=== PATIENT | female | born 1955 | race Caucasian/White ===

== ENCOUNTER 2022-11-01 13:27 | Emergency (ER) | payer OTHER, SELFPAY ==
[2022-11-01 13:38] VITALS: BP 170/75; PULSE 80; RESP 18; TEMP 36.7; O2SAT 99; BMI 20.7
--- NOTE | 2022-11-01 13:43 | DI.RAD.S_ITS ---
PROCEDURE: XR CHEST 1V INDICATIONS: chest pain TECHNIQUE: One view of the chest was acquired. COMPARISON: None. FINDINGS: Surgical changes and devices: An electronic device projecting to the left upper thorax. Lungs and pleura: Lungs are clear. No pleural effusions or pneumothorax. Mediastinum: Mediastinal contours appear normal. Heart size is normal. Bones and chest wall: No suspicious bony lesions. Overlying soft tissues appear unremarkable. IMPRESSION: No acute cardiopulmonary disease. Dictated by: Esa Amos M.D. on 11/01/2022 at 14:05 Approved by: Esa Amos M.D. on 11/01/2022 at 14:06
--- NOTE | 2022-11-01 13:59 | ED.CHESTPAIN ---
HPI - Chest Pain <JULIAN Chowdary - Last Filed: 11/01/22 16:24> General Chief Complaint: Chest Pain Stated Complaint: Chest pain Time Seen by Provider: 11/01/22 13:46 Source: patient Mode of arrival: Ambulatory Limitations: no limitations History of Present Illness HPI narrative: This is a 66-year-old female with history of type 1 diabetes, hypothyroidism, states that she takes supplemental thyroid, antihypertensive and hyperlipidemia medications as well as her insulin for her type 1 diabetes. Presents to the emergency department complaining of sharp left-sided chest pain started at 12:30. Patient states that when the pain started she was reaching with her left hand up to a shelf to grab something off, states it radiated to her back, she also felt dizziness and it lasted approximately 2 minutes. She states that since this event she is had recurrence of sharp left-sided chest pain only for up to 1 minute at a time and states this has happened at least a dozen times since 12:30. Denies other symptoms including nausea, vomiting, diaphoresis, fever, chills, lightheadedness, fall, palpitations. Denies recent change to her health other than episodes of what she thinks are palpitations. States that yesterday she was walking a dog and had the dog on a leash which pulled her in your left arm and she thought maybe was muscle tension but it is not reproducible, there is no pain with deep inspiration. The last episode of pain she states was approximately 15 minutes prior to my exam at 1350. She is seen at [facility], her PCP is Ishan Torres, she was recently at [facility] for Zio XT patch. Related Data Allergies Allergy/AdvReac Type Severity Reaction Status Date / Time codeine Allergy Verified 11/01/22 13:38 Review of Systems <JULIAN Chowdary - Last Filed: 11/01/22 16:24> Review of Systems ROS Unobtainable: All systems reviewed & are unremarkable except as noted in HPI and below Patient History <JULIAN Chowdary - Last Filed: 11/01/22 16:24> Social History Smoking Status: Never smoker Smoking Status: Never smoker Substance Use Type: marijuana Exam <JULIAN Chowdary - Last Filed: 11/01/22 16:24> Narrative Exam Narrative: Reviewed vitals signs and nursing notes. General: cooperative, comfortable, in no acute distress, well groomed, without diaphoresis HEENT: symmetrical facial expressions, moist mucous membranes Cardiovascular: regular rate and rhythm, S1-S2 without murmur, gallop, radial pulses 2+ bilaterally, without pallor or peripheral edema, she has warm extremities Respiratory: normal effort, able to speak in complete sentences, without wheezing, stridor, or abnormal breath sounds. No retractions or tachypnea. GI: abdomen soft, nontender to palpation, nondistended, without masses, rebound tenderness or exquisite tenderness with exam. MSK: moves all extremities, neurovascularly intact, no weakness, normal tone Skin: brisk capillary refill, without pallor or erythema Neuro: normal speech and cognition, A&O x3, ambulatory, clear speech Psych: mental status is grossly normal, congruent mood, normal affect, pleasant and cooperative Initial Vital Signs Initial Vital Signs: Vital Signs Temperature 98.1 F 11/01/22 13:38 Pulse Rate 80 11/01/22 13:38 Respiratory Rate 18 11/01/22 13:38 Blood Pressure 170/75 H 11/01/22 13:38 Pulse Oximetry 99 11/01/22 13:38 Oxygen Delivery Method 11/01/22 13:38 <Brian Diggs DO - Last Filed: 11/03/22 11:11> Initial Vital Signs Initial Vital Signs: Vital Signs Temperature 98.1 F 11/01/22 13:38 Pulse Rate 80 11/01/22 13:38 Respiratory Rate 18 11/01/22 13:38 Blood Pressure 170/75 H 11/01/22 13:38 Pulse Oximetry 99 11/01/22 13:38 Oxygen Delivery Method 11/01/22 13:38 Scores <JULIAN Chowdary - Last Filed: 11/01/22 16:24> HEART Score Heart Score history: Slightly Suspicious Heart Score EKG: Normal Heart Score Age: 45-64 years old Heart Score risk factors: > 3 risk factors or hx of atherosclerotic disease Heart Score troponin: < or = to normal limit Heart Score Total: 3 PERC Score Age greater than or equal to 50 years: Yes Heart rate greater than or equal to 100 bpm: No Room Air O2 Sat less than 95%: No Unilateral leg swelling: No Recent trauma or surgery: No Hemoptysis: No Prior PE or DVT: No Hormone Use: No Total PERC Score: 1 Wells' Criteria for PE Clinical signs and symptoms of DVT: No PE is #1 Dx or equally likely: No Heart rate > 100: No Immobilization at least 3 days or surg in previous 4 weeks: No History of PE or DVT: No Hemoptysis: No Malignancy w/Treatment within 6 months or palliative: No Wells' PE Score total: 0 <Brian Diggs DO - Last Filed: 11/03/22 11:11> HEART Score Heart Score Total: 3 PERC Score Total PERC Score: 1 Wells' Criteria for PE Wells' PE Score total: 0 Course <JULIAN Chowdary - Last Filed: 11/01/22 16:24> Orders Ordered: Discontinued Medications Aspirin (Aspirin 81 Mg Chew Tab) 324 mg PO NOW ONE Stop: 11/01/22 13:44 Last Admin: 11/01/22 14:27 Dose: 324 mg Documented By: PADDY Vital Signs Vital signs: Vital Signs - 8 hr 11/01/22 13:38 11/01/22 14:25 11/01/22 15:07 Temperature 98.1 F Pulse Rate 80 66 65 Respiratory Rate 18 17 18 Blood Pressure 170/75 H 137/63 117/60 Pulse Oximetry 99 99 98 Oxygen Delivery Method Room Air Room Air <Brian Diggs DO - Last Filed: 11/03/22 11:11> Orders Ordered: Discontinued Medications Aspirin (Aspirin 81 Mg Chew Tab) 324 mg PO NOW ONE Stop: 11/01/22 13:44 Last Admin: 11/01/22 14:27 Dose: 324 mg Documented By: PADDY Vital Signs Vital signs: Vital Signs - 8 hr 11/01/22 13:38 11/01/22 14:25 11/01/22 15:07 Temperature 98.1 F Pulse Rate 80 66 65 Respiratory Rate 18 17 18 Blood Pressure 170/75 H 137/63 117/60 Pulse Oximetry 99 99 98 Oxygen Delivery Method Room Air Room Air MDM - Chest Pain <JULIAN Chowdary - Last Filed: 11/01/22 16:24> Lab Data Result diagrams: 11/01/22 14:00 11/01/22 14:00 Labs: Lab Results 11/01/22 11/01/22 11/01/22 Range/Units 14:00 14:00 14:00 WBC 5.1 (4.5-11.0) X10^3/uL RBC 3.81 L (4.0-5.2) X10^6/uL Hgb 11.5 L (12.0-16.0) g/dL Hct 34.6 L (36-46) % MCV 90.9 (80-100) fL MCH 30.2 (26-34) PG MCHC 33.2 (30-36) % RDW 12.5 (11.6-14.8) % Plt Count 346 (150-400) X10^3/uL Neut % (Auto) 65.3 (50-75) % Lymph % (Auto) 20.6 L (25-40) % [place] % (Auto) 8.7 (3-14) % Eos % (Auto) 4.6 H (2-4) % Baso % (Auto) 0.8 (0-2) % Neut # (Auto) 3400 (4728-5656) /uL Lymph # (Auto) 1100 (2546-9885) /uL [place] # (Auto) 400 (0-900) /uL Eos # (Auto) 200 (0-450) /uL Baso # (Auto) 0 (0-100) /uL PT 10.9 (10.1-12.7) SECONDS INR 1.0 (0.9-1.3) APTT 29 (26-36) SECONDS D-Dimer (<500) ng/ml Sodium 138 (137-145) mmol/L Potassium 3.6 (3.4-5.1) mmol/L Chloride 105 (98-107) mmol/L Carbon Dioxide 28 (22-32) mmol/L BUN 15 (7-17) mg/dL Creatinine 0.64 (0.52-1.04) mg/dL Estimated GFR > 60 (>60) mL/min BUN/Creatinine Ratio 23.4 H (6-22) Glucose 160 H (80-110) mg/dL Calcium 9.5 (8.4-10.2) mg/dL Magnesium 2.1 (1.6-2.3) mg/dL Total Bilirubin 0.2 (0.2-1.3) mg/dL AST 23 (14-36) IU/L ALT 19 (<35) IU/L Alkaline Phosphatase 58 (38-126) U/L Total Creatine Kinase 46 (30-135) U/L CK-MB (CK-2) TNP CK-MB (CK-2) Rel Index TNP Troponin I < 0.012 (0.01-0.034) ng/mL NT-Pro-B Natriuret Pep (<125) pg/mL Total Protein 6.7 (6.3-8.2) g/dL Albumin 3.9 (3.5-5.0) g/dL Globulin 2.8 (1.7-4.1) g/dL Albumin/Globulin Ratio 1.4 (1.0-2.8) Lipase 115 (23-300) U/L TSH (0.47-4.68) uIU/mL Free T4 (0.78-2.19) ng/dL SARS-CoV-2 (PCR) (Negative) Influenza A (RT-PCR) (NEGATIVE) Influenza B (RT-PCR) (NEGATIVE) RSV (PCR) (Negative) 11/01/22 11/01/22 11/01/22 Range/Units 14:00 14:00 14:00 WBC (4.5-11.0) X10^3/uL RBC (4.0-5.2) X10^6/uL Hgb (12.0-16.0) g/dL Hct (36-46) % MCV (80-100) fL MCH (26-34) PG MCHC (30-36) % RDW (11.6-14.8) % Plt Count (150-400) X10^3/uL Neut % (Auto) (50-75) % Lymph % (Auto) (25-40) % [place] % (Auto) (3-14) % Eos % (Auto) (2-4) % Baso % (Auto) (0-2) % Neut # (Auto) (9985-0810) /uL Lymph # (Auto) (9348-5811) /uL [place] # (Auto) (0-900) /uL Eos # (Auto) (0-450) /uL Baso # (Auto) (0-100) /uL PT (10.1-12.7) SECONDS INR (0.9-1.3) APTT (26-36) SECONDS D-Dimer 591 H (<500) ng/ml Sodium (137-145) mmol/L Potassium (3.4-5.1) mmol/L Chloride (98-107) mmol/L Carbon Dioxide (22-32) mmol/L BUN (7-17) mg/dL Creatinine (0.52-1.04) mg/dL Estimated GFR (>60) mL/min BUN/Creatinine Ratio (6-22) Glucose (80-110) mg/dL Calcium (8.4-10.2) mg/dL Magnesium (1.6-2.3) mg/dL Total Bilirubin (0.2-1.3) mg/dL AST (14-36) IU/L ALT (<35) IU/L Alkaline Phosphatase (38-126) U/L Total Creatine Kinase (30-135) U/L CK-MB (CK-2) CK-MB (CK-2) Rel Index Troponin I (0.01-0.034) ng/mL NT-Pro-B Natriuret Pep 43 (<125) pg/mL Total Protein (6.3-8.2) g/dL Albumin (3.5-5.0) g/dL Globulin (1.7-4.1) g/dL Albumin/Globulin Ratio (1.0-2.8) Lipase (23-300) U/L TSH 4.88 H (0.47-4.68) uIU/mL Free T4 0.95 (0.78-2.19) ng/dL SARS-CoV-2 (PCR) (Negative) Influenza A (RT-PCR) (NEGATIVE) Influenza B (RT-PCR) (NEGATIVE) RSV (PCR) (Negative) 11/01/22 11/01/22 Range/Units 14:35 15:41 WBC (4.5-11.0) X10^3/uL RBC (4.0-5.2) X10^6/uL Hgb (12.0-16.0) g/dL Hct (36-46) % MCV (80-100) fL MCH (26-34) PG MCHC (30-36) % RDW (11.6-14.8) % Plt Count (150-400) X10^3/uL Neut % (Auto) (50-75) % Lymph % (Auto) (25-40) % [place] % (Auto) (3-14) % Eos % (Auto) (2-4) % Baso % (Auto) (0-2) % Neut # (Auto) (0942-0215) /uL Lymph # (Auto) (6189-9183) /uL [place] # (Auto) (0-900) /uL Eos # (Auto) (0-450) /uL Baso # (Auto) (0-100) /uL PT (10.1-12.7) SECONDS INR (0.9-1.3) APTT (26-36) SECONDS D-Dimer (<500) ng/ml Sodium (137-145) mmol/L Potassium (3.4-5.1) mmol/L Chloride (98-107) mmol/L Carbon Dioxide (22-32) mmol/L BUN (7-17) mg/dL Creatinine (0.52-1.04) mg/dL Estimated GFR (>60) mL/min BUN/Creatinine Ratio (6-22) Glucose (80-110) mg/dL Calcium (8.4-10.2) mg/dL Magnesium (1.6-2.3) mg/dL Total Bilirubin (0.2-1.3) mg/dL AST (14-36) IU/L ALT (<35) IU/L Alkaline Phosphatase (38-126) U/L Total Creatine Kinase (30-135) U/L CK-MB (CK-2) CK-MB (CK-2) Rel Index Troponin I < 0.012 (0.01-0.034) ng/mL NT-Pro-B Natriuret Pep (<125) pg/mL Total Protein (6.3-8.2) g/dL Albumin (3.5-5.0) g/dL Globulin (1.7-4.1) g/dL Albumin/Globulin Ratio (1.0-2.8) Lipase (23-300) U/L TSH (0.47-4.68) uIU/mL Free T4 (0.78-2.19) ng/dL SARS-CoV-2 (PCR) Negative (Negative) Influenza A (RT-PCR) Flu a negative (NEGATIVE) Influenza B (RT-PCR) Flu b negative (NEGATIVE) RSV (PCR) Negative (Negative) Imaging Data Chest x-ray: Radiologist's Impression: Patient: Rosa Sandoval MR#: [id number] : 1955 Acct:[id number] Age/Sex: 66 / F Date of Service: 11/01/22 Loc: ED Accession Number: [id number] ?? Procedure: XR chest 1V Ordering Provider: Marcello Gatica MD PROCEDURE:? XR CHEST 1V ? INDICATIONS:? chest pain ? TECHNIQUE:? One view of the chest was acquired.? ? COMPARISON:? None. ? FINDINGS:? ? Surgical changes and devices:? An electronic device projecting to the left upper thorax.? ? ? Lungs and pleura:? Lungs are clear.? No pleural effusions or pneumothorax.? ? Mediastinum:? Mediastinal contours appear normal.? Heart size is normal.? ? Bones and chest wall:? No suspicious bony lesions.? Overlying soft tissues appear unremarkable.? ? IMPRESSION:? No acute cardiopulmonary disease. ? ? Dictated by: Esa Amos M.D. on 11/01/2022 at 14:05 ? ? Approved by: Esa Amos M.D. on 11/01/2022 at 14:06 ? ECG Data Interpretation: EKG independently reviewed by myself at 1350 reveals normal sinus rhythm at 74 bpm with regular axis and intervals. No STEMI, ST segment changes, arrhythmia, or acute ischemic changes. Repeat EKG independently reviewed by myself at 1552 reveals normal sinus rhythm at [69] bpm with regular axis and intervals. No STEMI, ST segment changes, arrhythmia, or acute ischemic changes. MDM Narrative Medical decision making narrative: This is a 66-year-old female with PMH of type 1 diabetes, is on and hyperlipidemia and antihypertensive for cardioprotection without diagnosed history of hypertension or hyperlipidemia, past medical history also includes hypothyroidism and she presents to the ED via POV with sharp left-sided chest pain that started at 12:30 and has been intermittent with short episodes lasting less than 1 minute since then. Denies previous episodes, rates the pain at a 7/10 without radiation currently. She had radiation to her back with the initial episode of pain at 12:30 associated with dizziness. States that there were no other symptoms including numbness, tingling, nausea, diaphoresis, weakness, or injury.. Independent history provided by patient. Differential includes ACS, PE, pneumothorax, aortic dissection, myocarditis/pericarditis, abdominal etiology such as cholecystitis, pancreatitis, costochondritis. Course of Care: 1400 Initial exam, patient is without radiation of pain, last chest pain was approximately 15 minutes ago, she is comfortable without diaphoresis, nausea, numbness, tingling, dizziness or lightheadedness. The patient?s EKG, CMP, CBC, TSH, and Troponin, D-Dimer and Chest XR ordered after history and physical. Discussion of Management with other Health Professionals: [facility]00 At 16:00, [facility] and there is not provider available, told that provider is in procedures for most of the day, will return phone call later. I have independently interpreted the initial EKG which shows NSR, rate of 74bpm without ST changes, new arrhythmia, T wave inversions, STEMI, and with normal intervals. Repeat EKG at 15:52 is without any acute ST changes, inverted T-waves, arrhythmia or other abnormality. I have independently reviewed the CXR and there is no mediastinal widening or effusion. D-Dimer elevated at 591, age correction is not elevated under 640 Serial troponins were negative. Decision rules/scores evaluated: Heart Score 3 with low risk for MACE. PERC score of 1 Wells score 0 Repeat EKG demonstrates sinus rhythm with no acute ischemic changes. No pleuritic symptoms, recent history of extended travel/immobilization, cancer, exogenous estrogen use, or surgery. No evidence of pneumothorax or widened mediastinum on chest x-ray or exam. Pain is not described as tearing through to the back. Normal neuro exam, and equal pulses to bilateral upper and lower extremities; aortic dissection seems very unlikely. Neither clinical presentation, exam, or EKG seem c/w pericarditis or myocarditis. No abdominal pain or tenderness. Rest of labs reviewed and are unremarkable. Patient given aspirin here in the ED, with some relief of symptoms. Exam without evidence of volume overload, so doubt heart failure. EKG without signs of active ischemia. Given the timing of pain to ER presentation, single troponin negative for elevation delta troponin was __so doubt NSTEMI. Presentation not consistent with acute PE. Wells low risk, PERC 1, D dimer is elevated for age adjustment is without elevation under 640. BNP is not elevated, TSH is elevated at 4.88, patient states that she is taking levothyroxine currently. , consultation with [facility] was made, spoke with Dr. Haro. Recommend follow-up with [facility] and her PCP for risk stratification and outpatient testing as needed. She continues to wear a Zio patch. She is not had any arrhythmias or events while in the emergency department. Her COVID, influenza and RSV respiratory panel is negative via PCR. I have spoken to Dr. Haro from cardiology who will see the patient in the clinic for further evaluation and treatment. He states that she had a stress test in 2020 that was normal and her risk low, he will have patient follow-up in the clinic. Patient agreeable to plan, no further questions. MIPS: This encounter doesn't have any diagnosis associated with MIPS criteria. Social determinants of health that may impact treatment or disposition: Vital Signs: I, the ED provider, reviewed the patient?s vital signs, past medical records and encounters if available, and nursing notes. I have spoken with the patient/family and discussed today?s findings whom verbalize understanding. Counseling was provided regarding the diagnosis and prognosis, and specific details were provided for the plan of care. Questions are addressed and there is agreement with the plan and for follow-up. Patient is appropriate for outpatient management. Portions of this chart have been created with [employer] voice recognition software. Occasional wrong word or sound alike substitutions may have occurred due to the inherent limitations of this software. I, JULIAN Hough, personally performed the services described in the documentation, and it accurately records my words and actions. I collaborated with the ED attending physician for JESSENIA level 2, 3, and some level 4s as needed Electronically signed by: JULIAN Hough <Brian Diggs, DO - Last Filed: 11/03/22 11:11> Lab Data Labs: Lab Results 11/01/22 11/01/22 11/01/22 Range/Units 14:00 14:00 14:00 WBC 5.1 (4.5-11.0) X10^3/uL RBC 3.81 L (4.0-5.2) X10^6/uL Hgb 11.5 L (12.0-16.0) g/dL Hct 34.6 L (36-46) % MCV 90.9 (80-100) fL MCH 30.2 (26-34) PG MCHC 33.2 (30-36) % RDW 12.5 (11.6-14.8) % Plt Count 346 (150-400) X10^3/uL Neut % (Auto) 65.3 (50-75) % Lymph % (Auto) 20.6 L (25-40) % [place] % (Auto) 8.7 (3-14) % Eos % (Auto) 4.6 H (2-4) % Baso % (Auto) 0.8 (0-2) % Neut # (Auto) 3400 (2969-1234) /uL Lymph # (Auto) 1100 (3761-7447) /uL [place] # (Auto) 400 (0-900) /uL Eos # (Auto) 200 (0-450) /uL Baso # (Auto) 0 (0-100) /uL PT 10.9 (10.1-12.7) SECONDS INR 1.0 (0.9-1.3) APTT 29 (26-36) SECONDS D-Dimer (<500) ng/ml Sodium 138 (137-145) mmol/L Potassium 3.6 (3.4-5.1) mmol/L Chloride 105 (98-107) mmol/L Carbon Dioxide 28 (22-32) mmol/L BUN 15 (7-17) mg/dL Creatinine 0.64 (0.52-1.04) mg/dL Estimated GFR > 60 (>60) mL/min BUN/Creatinine Ratio 23.4 H (6-22) Glucose 160 H (80-110) mg/dL Calcium 9.5 (8.4-10.2) mg/dL Magnesium 2.1 (1.6-2.3) mg/dL Total Bilirubin 0.2 (0.2-1.3) mg/dL AST 23 (14-36) IU/L ALT 19 (<35) IU/L Alkaline Phosphatase 58 (38-126) U/L Total Creatine Kinase 46 (30-135) U/L CK-MB (CK-2) TNP CK-MB (CK-2) Rel Index TNP Troponin I < 0.012 (0.01-0.034) ng/mL NT-Pro-B Natriuret Pep (<125) pg/mL Total Protein 6.7 (6.3-8.2) g/dL Albumin 3.9 (3.5-5.0) g/dL Globulin 2.8 (1.7-4.1) g/dL Albumin/Globulin Ratio 1.4 (1.0-2.8) Lipase 115 (23-300) U/L TSH (0.47-4.68) uIU/mL Free T4 (0.78-2.19) ng/dL SARS-CoV-2 (PCR) (Negative) Influenza A (RT-PCR) (NEGATIVE) Influenza B (RT-PCR) (NEGATIVE) RSV (PCR) (Negative) 11/01/22 11/01/22 11/01/22 Range/Units 14:00 14:00 14:00 WBC (4.5-11.0) X10^3/uL RBC (4.0-5.2) X10^6/uL Hgb (12.0-16.0) g/dL Hct (36-46) % MCV (80-100) fL MCH (26-34) PG MCHC (30-36) % RDW (11.6-14.8) % Plt Count (150-400) X10^3/uL Neut % (Auto) (50-75) % Lymph % (Auto) (25-40) % [place] % (Auto) (3-14) % Eos % (Auto) (2-4) % Baso % (Auto) (0-2) % Neut # (Auto) (1724-2757) /uL Lymph # (Auto) (9421-4594) /uL [place] # (Auto) (0-900) /uL Eos # (Auto) (0-450) /uL Baso # (Auto) (0-100) /uL PT (10.1-12.7) SECONDS INR (0.9-1.3) APTT (26-36) SECONDS D-Dimer 591 H (<500) ng/ml Sodium (137-145) mmol/L Potassium (3.4-5.1) mmol/L Chloride (98-107) mmol/L Carbon Dioxide (22-32) mmol/L BUN (7-17) mg/dL Creatinine (0.52-1.04) mg/dL Estimated GFR (>60) mL/min BUN/Creatinine Ratio (6-22) Glucose (80-110) mg/dL Calcium (8.4-10.2) mg/dL Magnesium (1.6-2.3) mg/dL Total Bilirubin (0.2-1.3) mg/dL AST (14-36) IU/L ALT (<35) IU/L Alkaline Phosphatase (38-126) U/L Total Creatine Kinase (30-135) U/L CK-MB (CK-2) CK-MB (CK-2) Rel Index Troponin I (0.01-0.034) ng/mL NT-Pro-B Natriuret Pep 43 (<125) pg/mL Total Protein (6.3-8.2) g/dL Albumin (3.5-5.0) g/dL Globulin (1.7-4.1) g/dL Albumin/Globulin Ratio (1.0-2.8) Lipase (23-300) U/L TSH 4.88 H (0.47-4.68) uIU/mL Free T4 0.95 (0.78-2.19) ng/dL SARS-CoV-2 (PCR) (Negative) Influenza A (RT-PCR) (NEGATIVE) Influenza B (RT-PCR) (NEGATIVE) RSV (PCR) (Negative) 11/01/22 11/01/22 Range/Units 14:35 15:41 WBC (4.5-11.0) X10^3/uL RBC (4.0-5.2) X10^6/uL Hgb (12.0-16.0) g/dL Hct (36-46) % MCV (80-100) fL MCH (26-34) PG MCHC (30-36) % RDW (11.6-14.8) % Plt Count (150-400) X10^3/uL Neut % (Auto) (50-75) % Lymph % (Auto) (25-40) % [place] % (Auto) (3-14) % Eos % (Auto) (2-4) % Baso % (Auto) (0-2) % Neut # (Auto) (6072-0054) /uL Lymph # (Auto) (3052-7358) /uL [place] # (Auto) (0-900) /uL Eos # (Auto) (0-450) /uL Baso # (Auto) (0-100) /uL PT (10.1-12.7) SECONDS INR (0.9-1.3) APTT (26-36) SECONDS D-Dimer (<500) ng/ml Sodium (137-145) mmol/L Potassium (3.4-5.1) mmol/L Chloride (98-107) mmol/L Carbon Dioxide (22-32) mmol/L BUN (7-17) mg/dL Creatinine (0.52-1.04) mg/dL Estimated GFR (>60) mL/min BUN/Creatinine Ratio (6-22) Glucose (80-110) mg/dL Calcium (8.4-10.2) mg/dL Magnesium (1.6-2.3) mg/dL Total Bilirubin (0.2-1.3) mg/dL AST (14-36) IU/L ALT (<35) IU/L Alkaline Phosphatase (38-126) U/L Total Creatine Kinase (30-135) U/L CK-MB (CK-2) CK-MB (CK-2) Rel Index Troponin I < 0.012 (0.01-0.034) ng/mL NT-Pro-B Natriuret Pep (<125) pg/mL Total Protein (6.3-8.2) g/dL Albumin (3.5-5.0) g/dL Globulin (1.7-4.1) g/dL Albumin/Globulin Ratio (1.0-2.8) Lipase (23-300) U/L TSH (0.47-4.68) uIU/mL Free T4 (0.78-2.19) ng/dL SARS-CoV-2 (PCR) Negative (Negative) Influenza A (RT-PCR) Flu a negative (NEGATIVE) Influenza B (RT-PCR) Flu b negative (NEGATIVE) RSV (PCR) Negative (Negative) Discharge Plan Departure Patient Disposition: Home Clinical Impression: History of hypothyroidism, Elevated TSH Chest pain Qualifiers: Chest pain type: unspecified Qualified Code(s): R07.9 - Chest pain, unspecified Instructions: DI for Chest Pain Activity Restrictions/Additional Instructions: Rosa, thank you for coming in and for explaining the history of your chest pain. I have spoke with [facility], Dr. Haro specifically and he has received the information about your visit today. It is reassuring that you have not had any abnormal changes to your EKG, troponin, or other acute cardiac abnormality which would keep you in the hospital or require a procedure. Please call the office and schedule follow-up as soon as possible, Dr. Haro will let the lead front desk agent know. Please take the copies of your EKGs with you. They will request her records. The only thing abnormal on your lab work is evidence mildly elevated TSH at 4.88, free T4 of 0.95, please follow-up with your primary care provider about that number. Please stay hydrated, return for any severe symptoms including chest pain, shortness of breath, radiation of pain, sweating, dizziness or other. Your Chest Pain Evaluation ? You have been evaluated in the emergency department (ED) for chest pain and/or other symptoms that could be signs of a heart attack. The initial test results do NOT indicate that you are currently having a heart attack. ? The evaluation may have included the following: electrocardiogram (ECG or EKG), blood work including heart muscle enzyme tests (e.g. troponin), chest x-ray, and other tests, as appropriate. Your Personal Risk Evaluation ? Your personal risk evaluation is based upon the description of symptoms, your medical history, physical examination and test results. For people coming to the ED with similar factors, the estimated risk of a heart attack, or a major adverse cardiac event, in the next 30 days is around 1 in 50 to 1 in 100. ? Important note: ?1 in 100? is NOT ?0 in 100.? Therefore, even after leaving here today, immediately return to the ED if you experience worsening discomfort in your chest, arms, neck, jaw or back, or you develop other concerning symptoms such as shortness of breath or sweatiness. It is best to call ?911?, in case of emergency, rather than driving yourself to the nearest ED. Next Steps after Discharge from the ED ? Because the unexpected can occur, and the exact cause of your episode of chest discomfort is not yet known with certainty, it is vital that you call either your own doctor or the doctor we recommend by the next business day, to arrange follow-up evaluation and possible further testing, ideally within three days. ? Please discuss with your doctor ways to reduce the risk of developing heart disease. In general, these recommendations include healthy diet, regular physical activity, tobacco cessation, managing conditions such as high blood pressure, high cholesterol and diabetes. If you develop worsening chest pain, shortness of breath, or symptoms with physical activity, please come back to the emergency department for another evaluation. *What to do: *Please continue to take your regular medications as directed. [ ] New medication prescriptions sent to your pharmacy: [ ] [ ] New medication written as a paper prescription [x ] No new medications given *Please follow up with your primary care provider in 2-3 days, call for an appointment. Let them know you were seen in the Emergency Department and that we asked that you be seen for follow-up. We will electronically transmit a record of today's note if your PCP is in our system *If you do not have a primary care provider please contact [phone] to establish care with one of the [facility] primary care providers. *Return to Emergency Department if you should have any new, worsening, or concerning symptoms, such as [fever greater than 101F, chills, worsening pain, persistent vomiting or other bothersome symptoms]. Referrals: [facility] - [facility] [Outside] Ishan Torres ARNP [Primary Care Provider] - Stand Alone Forms: Patient Portal/API <Brian Diggs DO - Last Filed: 11/03/22 11:11> [facility] ED Attending Cristopher Attestation: I was immediately available in the department for consultation. This documentation has been reviewed and I agree with assessment and plan. Supervised by Brian Diggs DO
[2022-11-01 14:25] VITALS: BP 137/63; PULSE 66; RESP 17; O2SAT 99
[2022-11-01 14:27] LABS: Add Manual Diff / Slide Review NO; Basophils Absolute Auto 0 /uL (0-100); Basophils Percent Auto 0.8 % (0-2); Eosinophils Absolute Auto 200 /uL (0-450); Eosinophils Percent Auto 4.6 % (2-4); Hematocrit 34.6 % (36-46); Hemoglobin 11.5 g/dL (12.0-16.0); Lymphocytes Absolute Auto 1100 /uL (1100-4500); Lymphocytes Percent Auto 20.6 % (25-40); Mean Corpuscular HGB Conc 33.2 % (30-36); Mean Corpuscular Hemoglobin 30.2 PG (26-34); Mean Corpuscular Volume 90.9 fL (80-100); Monocytes Absolute Auto 400 /uL (0-900); Monocytes Percent Auto 8.7 % (3-14); Neutrophils Absolute Auto 3400 /uL (1500-7000); Neutrophils Percent Auto 65.3 % (50-75); Platelet Count 346 X10^3/uL (150-400); Red Blood Cell Count 3.81 X10^6/uL (4.0-5.2); Red Cell Distribution Width 12.5 % (11.6-14.8); White Blood Cell Count 5.1 X10^3/uL (4.5-11.0)
[2022-11-01] MEDS: ASPIRIN 81 MG CHEW TAB 324 MG PO (14:27)
[2022-11-01 14:36] LABS: Prothrombin Time 10.9 SECONDS (10.1-12.7)
--- NOTE | 2022-11-01 14:37 | PC.NURSE ---
walked out to waitin area and updated at pts request.
[2022-11-01 14:38] LABS: PTT Partial Thromboplastin Tim 29 SECONDS (26-36)
[2022-11-01 14:39] LABS: Alanine Aminotransferase 19 IU/L (<35); Albumin 3.9 g/dL (3.5-5.0); Albumin Globulin Ratio 1.4 (1.0-2.8); Alkaline Phosphatase 58 U/L (38-126); Aspartate Aminotransferase 23 IU/L (14-36); BUN Creatinine Ratio 23.4 (6-22); Bilirubin Total 0.2 mg/dL (0.2-1.3); Blood Urea Nitrogen 15 mg/dL (7-17); Calcium 9.5 mg/dL (8.4-10.2); Carbon Dioxide 28 mmol/L (22-32); Chloride 105 mmol/L (98-107); Creatine Kinase 46 U/L (30-135); Estimated Glomerular Filt Rate > 60 mL/min (>60); Globulin 2.8 g/dL (1.7-4.1); Glucose 160 mg/dL (80-110); HEMOLYSIS < 15 (0-50); Lipase 115 U/L (23-300); Magnesium 2.1 mg/dL (1.6-2.3); Potassium 3.6 mmol/L (3.4-5.1); Sodium 138 mmol/L (137-145); Total Protein 6.7 g/dL (6.3-8.2)
[2022-11-01 14:47] LABS: NT-proBNP (BNP-Adult 18+) 43 pg/mL (<125)
[2022-11-01 14:50] LABS: Troponin I < 0.012 ng/mL (0.01-0.034)
[2022-11-01 14:56] LABS: D Dimer 591 ng/ml (<500); Free T4, Direct Thyroxine 0.95 ng/dL (0.78-2.19)
[2022-11-01 15:07] VITALS: BP 117/60; PULSE 65; RESP 18; O2SAT 98
[2022-11-01 15:10] LABS: Thyroid Stimulating Hormone 4.88 uIU/mL (0.47-4.68)
[2022-11-01 15:20] LABS: COVID-19 CEPHEID 4-PLEX PCR Negative (Negative); Influenza A - CEPHEID Flu A NEGATIVE (NEGATIVE); Influenza B - CEPHEID Flu B NEGATIVE (NEGATIVE); Respiratory Syncytial Virus Negative (Negative)
[2022-11-01 16:20] LABS: Troponin I < 0.012 ng/mL (0.01-0.034)
[2022-11-01 16:27] VITALS: BP 129/72; PULSE 69; RESP 18; O2SAT 98
== END 2022-11-01 16:27 | disposition home or self-care (01) ==
PROVIDERS: Emergency Medicine; Emergency Provider Nurse Practitioner Critical Care Medicine; PCP Nurse Practitioner Family
DX: R07.9 Chest pain, unspecified (principal); R42 Dizziness and giddiness; R79.89 Other specified abnormal findings of blood chemistry; Z86.39 Personal history of other endocrine, nutritional and metabolic disease; Z20.822 Contact with and (suspected) exposure to COVID-19
CPT/HCPCS: 0241U; 36415; 71045; 80053; 82550; 83690; 83735; 83880; 84439; 84443; 84484; 85025; 85379; 85610; 85730; 93005; 93010; 99284